=== PATIENT | male | born 1990 | race Caucasian/White ===

== ENCOUNTER 2024-07-08 05:04 | Inpatient (IN) | payer BC ==
[~2024-07-08] VITALS: Ht 170.2 cm; Wt 81.6 kg
[2024-07-08] VITALS (7 sets, daily range): BP systolic 101–179; BP diastolic 56–100; PULSE 89–151; RESP 18–20; TEMP 98.3–99.3; O2SAT 100
--- NOTE | 2024-07-08 05:30 | NUR ---
patient ambulated to bed 9, father at bedside
[2024-07-08] MEDS: NACL 0.9% 1,000 ML IV ONE (05:40)
--- NOTE | 2024-07-08 05:40 | NUR ---
MEDICATED ASPER ERMDS ORDER, TOLERATED WELL
[2024-07-08 05:44] LABS: BASOPHILS % (AUTO) 0.6 % (0.0-2.0); EOSINOPHILS # (AUTO) 0.1 K/uL (0-0.4); EOSINOPHILS % (AUTO) 1.7 % (0.0-4.0); HEMATOCRIT 30.3 % (36-52); HEMOGLOBIN 10.1 g/dL (12.0-18.0); LYMPHOCYTES # (AUTO) 1.3 K/uL (2.0-11.5); LYMPHOCYTES % (AUTO) 17.5 % (20.5-51.1); MEAN CORPUSCULAR HEMOGLOBIN 30 pg (27-31); MEAN CORPUSCULAR HGB CONC 34 g/dL (33-37); MEAN CORPUSCULAR VOLUME 88.4 fL (80-94); MONOCYTES # (AUTO) 0.9 K/uL (0.8-1.0); MONOCYTES % (AUTO) 11.9 % (1.7-9.3); NEUTROPHILS # (AUTO) 4.9 K/uL (1.8-7.7); NEUTROPHILS % (AUTO) 68.3 % (42.2-75.2); PLATELET COUNT (AUTO) 79 K/uL (140-450); RED BLOOD CELL COUNT(AUTO) 3.42 MIL/uL (4.20-6.10); RED CELL DISTRIBUTION WIDTH 19.8 % (11.6-13.7); WHITE BLOOD COUNT (AUTO) 7.2 K/uL (4.8-10.8)
[2024-07-08] MEDS: PANTOPRAZOLE 40 MG INJ VIAL IVP ONE (05:44)
[2024-07-08] MEDS: ONDANSETRON 4 MG/2 ML VIAL IVP ONE (05:45)
[2024-07-08 05:57] LABS: INR 1.52 (0.8-1.2); PROTHROMBIN TIME 15.5 secs (10.8-13.4)
[2024-07-08] MEDS: OCTREOTIDE ACETATE 1000 MCG/5 ML VIAL ONE (06:08)
[2024-07-08] MEDS: OCTREOTIDE ACETATE 100 MCG/ML VIAL IV ONE (06:23)
--- NOTE | 2024-07-08 06:50 | NUR ---
NO VOMITING OF BLOOD NOTED
[2024-07-08] MEDS ORDERED: cefTRIAXone 1,000 MG VIAL ONE (06:51)
[2024-07-08 06:53] LABS: ALBUMIN 3.4 g/dL (3.4-5.0); BILIRUBIN,DIRECT 2.6 mg/dL (0.0-0.3); TOTAL BILIRUBIN 5.5 mg/dL (0.0-1.0); TOTAL PROTEIN, SERUM 7.7 g/dL (6.4-8.2)
[2024-07-08 07:04] LABS: LACTIC ACID 2.9 mmol/L (0.4-2.0)
[2024-07-08 07:40] LABS: ANION GAP 17.8 (8-16); CALCIUM 8.7 mg/dL (8.5-10.1); CARBON DIOXIDE 21.7 mmol/L (21-32); POTASSIUM 3.5 mmol/L (3.5-5.1)
[2024-07-08 07:41] LABS: CREATININE 0.8 mg/dL (0.6-1.3)
[2024-07-08] MEDS: OCTREOTIDE ACETATE 1.25 MG in NACL 0.9% 250 ML IV SCH (07:43)
--- NOTE | 2024-07-08 07:45 | NUR ---
AT BEDSIDE WITH NIGHT RN, OCTECIDE HUNG PER ORDER. PT WITH 1 EPISODE HEMOPTYSIS.
--- NOTE | 2024-07-08 07:45 | NUR ---
REPORT GIVEN TO GARCIA LÓPEZ
--- NOTE | 2024-07-08 08:05 | NUR ---
FAMILY MEMBER AT BEDSIDE, PT RESTING WITH EYES CLOSED, NO FURTHER EPISODE OF HEMOPTYSIS
--- NOTE | 2024-07-08 08:25 | NUR ---
MEDICATED FOR TEMP 100.0
[2024-07-08] MEDS ORDERED: ALBUTEROL 0.083% 2.5 MG/3 ML NEBU INH PRN (08:50)
[2024-07-08] MEDS ORDERED: ONDANSETRON 4 MG/2 ML VIAL IVP PRN (08:50)
[2024-07-08] MEDS ORDERED: LORazepam 2 MG/ML VIAL IVP PRN (08:50)
[2024-07-08] MEDS ORDERED: ACETAMINOPHEN 325 MG TAB ONE (09:25)
[2024-07-08] MEDS ORDERED: ACETAMINOPHEN EXTRA STRENGTH 500 MG TAB PO ONE (09:40)
[2024-07-08] MEDS: ACETAMINOPHEN 325 MG TAB PO ONE (09:51)
--- NOTE | 2024-07-08 09:55 | NUR ---
Patient will be admitted to care of DR ADAME. Admited to TELE. Will go to room 104B. Belongings list completed. Report to SRINATH LÓPEZ.
--- NOTE | 2024-07-08 10:00 | NUR ---
ADMITTED WITH CHIEF COMPLAIN OF VOMITING. 34Y/O, MALE.ORIENTED TO CALL LIGHT, BED PHONE, TELEVISION, BATHROOM, SMOKING POLICY,VISITING HOURS, PROCEDURES, ID BRACELETS ON , BELONGINGS LIST CHECKED. PATIENT RECEIVED FROM ER VIA RSAN FRANCISCO. A/0X4, HEART MONITOR APPLIED, SKIN INTACT, AMBULATORY, CONTINENT. SAFETY PRECAUTION APPLIED. CALL LIGHT WITHIN REACH. PT NPO. PT STILL UNDER OBSERVE.
[2024-07-08] MEDS: PANTOPRAZOLE 40 MG INJ VIAL IVP SCH (10:20)
[2024-07-08] MEDS: DEXT 5% /NACL 0.9% 1,000 ML IV SCH (10:21)
--- NOTE | 2024-07-08 10:51 | NUR ---
Admitted from , with chief complaint of VOMITING , 34 y/o ,Male, Appropriate, oriented to call light, bed, phone,television, bathroom, smoking policy, visiting hours, procedures, ID bracelet on. Belongings list checked. PATIENT RECEIVED FROM ER VIA GURNEY BY ONE OF RAS GARCIA , SKIN INTACT , MONITOR APPLIED HAS VOMITING , CONTINENT X2 , ON IV FLUID 100ML/H , AMBULATORY , ON ROOM AIR , NPO SAFETY PRECAUTION ON PLACE , SIDE RAILS UP X2 , BED IN LOWER POSITION , CALL LIGHT WITHIN REACH PATIENT FOE GI CONSULT , PT STILL UNDER OBSERVE ,
--- NOTE | 2024-07-08 12:34 | NUR ---
PATIENT ON BED REST , VSS , SINUS TACHYCARDIA ON MONITOR PATIENT HAS VOMITING , SAFETY ON PLACE , PT STILL UNDER OBSERVE .
--- NOTE | 2024-07-08 15:28 | NUR ---
PT WENT TO THE OR FOR EGD PROCEDURE VIA 2 [employer]PL[employer] . NO SIGN OF DISTRESS.
[2024-07-08] MEDS: MIDAZOLAM 2 MG/2 ML VIAL IVP ONE (15:32)
[2024-07-08] MEDS: fentaNYL citrate 0.05 MG/ML VIAL IVP ONE (15:33)
[2024-07-08] MEDS: fentaNYL citrate 0.05 MG/ML VIAL ONE ×2 (15:33→15:34)
[2024-07-08] MEDS: diphenhydrAMINE 50 MG/ML VIAL ONE (15:33)
[2024-07-08] MEDS: MIDAZOLAM 5 MG/5 ML VIAL ONE (15:34)
[2024-07-08] MEDS: diphenhydrAMINE 50 MG/ML VIAL IVP ONE (15:35)
--- NOTE | 2024-07-08 16:05 | NUR ---
patient come back to the floor after EGD done , vss , no complain , still on ivf fluid started on full liquid diet , pt awake , conscious , safety o n place , pt still under observe
--- NOTE | 2024-07-08 16:15 | NUR ---
PT RETURNED TO [facility] FROM OR. ESOPHAGEAL VARICOS PORTAL GASTROPATHY WSW DISCOVERED DURING EGD. VSS AND ON BED REST. KEEP MONITORING.
--- NOTE | 2024-07-08 16:16 | NUR ---
PATIENT HAS BEEN SCREENED AND CATEGORIZED LOW NUTRITION RISK. PATIENT WILL BE SEEN WITHIN 7 DAYS OF ADMISSION. 07/15/[address]
[2024-07-08] MEDS: PROPRANOLOL 20 MG TAB PO SCH (16:18)
--- NOTE | 2024-07-08 19:05 | NUR ---
SHIFT REPORT GIVEN TO NIGHT NURSE CHENTE LÓPEZ ALL HER QUESTION ANSWERED
--- NOTE | 2024-07-08 19:15 | NUR ---
RECEIVED REPORT. PATIENT IS AWAKE ALERT VERBALLY RESPONSIVE. NO SOB NOTED. NO COMPLAINTS OF PAIN AT THIS TIME. IVF D5 NS INFUSING AT 100 ML/HR TO RIGHT ANTECUBITAL. SANDOSTATIN 1.25 MG IN 250 ML RUNNING 10 ML/HR. SAFETY MEASURES IN PLACE. CALL LIGHT WITHIN REACH. WILL CONTINUE TO MONITOR.
--- NOTE | 2024-07-08 20:56 | NUR ---
SCHEDULED MEDICATION DUE GIVEN.
[2024-07-08] MEDS: MORPHINE SULFATE 2 MG/ML SYR IVP PRN (23:22)
[2024-07-09] VITALS: BP 110/63; PULSE 87; PULSE 94; RESP 19; TEMP 98.6; O2SAT 97
[2024-07-09 04:00] VITALS: BP 120/72; PULSE 83; RESP 19; TEMP 98.1; O2SAT 99
--- NOTE | 2024-07-09 05:57 | NUR ---
ALL NEEDS MET THROUGHOUT THE SHIFT.
[2024-07-09 06:44] LABS: BASOPHILS % (AUTO) 1.2 % (0.0-2.0); EOSINOPHILS # (AUTO) 0.2 K/uL (0-0.4); EOSINOPHILS % (AUTO) 5.3 % (0.0-4.0); HEMATOCRIT 24.1 % (36-52); HEMOGLOBIN 7.8 g/dL (12.0-18.0); LYMPHOCYTES # (AUTO) 1.2 K/uL (2.0-11.5); LYMPHOCYTES % (AUTO) 30.5 % (20.5-51.1); MEAN CORPUSCULAR HEMOGLOBIN 29 pg (27-31); MEAN CORPUSCULAR HGB CONC 33 g/dL (33-37); MEAN CORPUSCULAR VOLUME 90.3 fL (80-94); MONOCYTES # (AUTO) 0.4 K/uL (0.8-1.0); MONOCYTES % (AUTO) 11.3 % (1.7-9.3); NEUTROPHILS % (AUTO) 51.7 % (42.2-75.2); PLATELET COUNT (AUTO) 58 K/uL (140-450); RED BLOOD CELL COUNT(AUTO) 2.66 MIL/uL (4.20-6.10); WHITE BLOOD COUNT (AUTO) 3.8 K/uL (4.8-10.8)
[2024-07-09 07:02] LABS: ANION GAP 13.4 (8-16); CALCIUM 7.8 mg/dL (8.5-10.1); CARBON DIOXIDE 23.6 mmol/L (21-32); CREATININE 0.8 mg/dL (0.6-1.3)
--- NOTE | 2024-07-09 07:15 | NUR ---
GAVE REPORT TO DAY SHIFT NURSE FOR CONTINUITY OF CARE. NO DISTRESS UPON ENDORSEMENT.
--- NOTE | 2024-07-09 07:15 | NUR ---
RECEIVED REPORT FROM ENTERTAINMENT DIRECTOR NURSE. PATIENT RESTING, A/O X4. NO SOB. RESPIRATION EVEN AND UNLABORED. PLAN OF CARE ONGOING. [id number]
[2024-07-09 08:00] VITALS: BP 121/67; PULSE 86; RESP 19; TEMP 98.6; O2SAT 98
--- NOTE | 2024-07-09 10:00 | NUR ---
PATIENT RESTING IN BED, VSS, RESPIRATION EVEN AND UNLABORED. NO SOB. NO PAIN OR DISTRESS NOTED. GAVE MEDS ORDERED; TOLERATED WELL. NO FURTHER CONCERNS OF PRESENT. POC ONGOING, NO FURTHER CONCERNS OF PRESENT. [id number]
--- NOTE | 2024-07-09 10:12 | NUR ---
Per AM rounds, H&H stable, GI to clear, for possible DC today No new orders for CM at this time
[2024-07-09 12:00] VITALS: BP 116/62; PULSE 75; PULSE 77; RESP 18; TEMP 98.9; O2SAT 100
--- NOTE | 2024-07-09 13:00 | NUR ---
PATIENT RESTING IN BED WITH CALM AND RELAXED EXPRESSION, RESPIRATION EVEN AND UNLABORED. VSS. NO SOB. NO PAIN OR DISTRESS NNOTED. GI DOCTOR VISIT AND CHANGED DIET TO SOFT DIET. POC ON GOING. NO FURTHER CONCERNS OF PRESENT. [id number]
--- NOTE | 2024-07-09 15:23 | NUR ---
PATIENT RESTING IN BED, VISIBLE CHEST RISE AND FALL. NO SOB. NO PAIN OR DISTRESS NOTED. ATE 100% OF LUNCH; TOLERATED WELL. ALL ORDERED MEDS ALL NEEDS ATTENDED TO BY STAFF DURING THIS TIME. POC ONGOING. NO FURTHER CONCERNS OF PRESENT. [id number]
[2024-07-09 16:00] VITALS: BP 106/64; PULSE 78; RESP 18; TEMP 98.4; O2SAT 99
[2024-07-09] MEDS: LANSOPRAZOLE 30 MG CAPDR PO SCH (16:53)
--- NOTE | 2024-07-09 17:49 | NUR ---
PATIENT RESTING IN BED WITH CALM AND RELAXED EXPRESSION. VSS. NO SOB. NO PAIN OR DISTRESS NOTED. RESPIRATION EVEN AND UNLABORED. ASSISTED WITH ALL ADLS, KEPT WARM, DRY AND COMFORTABLE. POC ONGOING, NO FURTHER CONCERNS OF PRESENT. [id number]
--- NOTE | 2024-07-09 18:41 | NUR ---
PATIENT RESTING IN BED VSS. NO SOB. RESPIRATION EVEN AND UNLABORED. NO PAIN OR DISTRESS NOTED. ATE 70% OF DINNER; TOLERATED WELL. ALL MEDICATION GIVEN ORDERED; TOLERATED WELL WITH NO ADVERSE SIDE EFFECTS. PLAN OF CARE ONGOING. NO FURTHER CONCERNS OF PRESENT. [id number]
--- NOTE | 2024-07-09 19:20 | NUR ---
GAVE REPORT TO RECORD CHANGER TESTER NURSE. VSS. SO SOB. NO PAIN OR DISCOMFORT. BED IN LOW POSITION. CALL LIGHT WITHIN NORMAL REACH. [id number]
--- NOTE | 2024-07-09 19:54 | NUR ---
PATIENT IN BED WELL RESTED. NO ACUTE DISTRESS NOTED ON ROOM AIR. DENIES PAIN AT THIS TIME. CALL LIGHT ON EASY REACH. BED WHEELS LOCKED IN LOW POSITION SIDE RAILS UP FOR SAFETY.
[2024-07-09 20:00] VITALS: BP 102/58; PULSE 79; PULSE 90; RESP 18; TEMP 98.9; O2SAT 100
[2024-07-10] VITALS: BP 117/73; PULSE 77; PULSE 79; RESP 18; TEMP 97.9; O2SAT 100
--- NOTE | 2024-07-10 01:06 | NUR ---
MADE ROUNDS, PATIENT UST CAME FROM THE TOILET, NO SOB NOTED. AMBULATORY.
[2024-07-10 04:00] VITALS: BP 112/63; PULSE 63; PULSE 73; RESP 18; TEMP 98.5; O2SAT 100
[2024-07-10 06:55] LABS: BASOPHILS % (AUTO) 1.2 % (0.0-2.0); EOSINOPHILS # (AUTO) 0.2 K/uL (0-0.4); EOSINOPHILS % (AUTO) 5.1 % (0.0-4.0); HEMATOCRIT 23.7 % (36-52); HEMOGLOBIN 7.8 g/dL (12.0-18.0); LYMPHOCYTES % (AUTO) 30.7 % (20.5-51.1); MEAN CORPUSCULAR HEMOGLOBIN 30 pg (27-31); MEAN CORPUSCULAR HGB CONC 33 g/dL (33-37); MONOCYTES # (AUTO) 0.5 K/uL (0.8-1.0); MONOCYTES % (AUTO) 14.5 % (1.7-9.3); NEUTROPHILS # (AUTO) 1.5 K/uL (1.8-7.7); NEUTROPHILS % (AUTO) 48.5 % (42.2-75.2); PLATELET COUNT (AUTO) 61 K/uL (140-450); RED BLOOD CELL COUNT(AUTO) 2.61 MIL/uL (4.20-6.10); RED CELL DISTRIBUTION WIDTH 19.3 % (11.6-13.7); WHITE BLOOD COUNT (AUTO) 3.2 K/uL (4.8-10.8)
--- NOTE | 2024-07-10 07:17 | NUR ---
RECEIVED BEDSIDE REPORT FROM TECHNOLOGY AUDITOR NURSE CHENTE RN, PT RESTING, NO DISTRESS NOTED, AWAKE ALERT ABLE TO COMMUNICATE. IV TO RIGHT AC 18G PATENT INTACT, INFUSING D5NS @100ML/HR, INFUSING WELL. PT ON ROOM AIR, NO SOB NOTED. NO C/O PAIN AT THIS MOMENT, INITIAL ASSESSMENT DONE, ALL SAFETY PRECAUTION IN PLACE. Addendum: 07/10/24 at 0804 by CONSTANCE HUGGINS RN CALL LIGHT WITHIN REACH.
--- NOTE | 2024-07-10 07:17 | NUR ---
GAVE BEDSIDE REPORT TO CONSTANCE LÓPEZ FOR CONTINUITY OF CARE. PATIENT STABLE.
[2024-07-10 07:35] LABS: ANION GAP 13.4 (8-16); CALCIUM 8.2 mg/dL (8.5-10.1); CARBON DIOXIDE 22.1 mmol/L (21-32); CREATININE 0.7 mg/dL (0.6-1.3); POTASSIUM 3.5 mmol/L (3.5-5.1)
--- NOTE | 2024-07-10 07:46 | NUR ---
DUE MEDICATIONS ADMINISTERED, PT TOLERATED WELL, CALL LIGHT WITHIN REACH.
[2024-07-10 08:00] VITALS: BP 114/64; PULSE 77; PULSE 78; PULSE 94; RESP 18; TEMP 97.8; O2SAT 100
--- NOTE | 2024-07-10 08:56 | NUR ---
DUE MEDICATIONS ADMINISTERED, PT TOLERATED WELL, CALL LIGHT WITHIN REACH.
[2024-07-10] MEDS ORDERED: PANT40EC PO (10:46)
[2024-07-10] MEDS ORDERED: PROP20TA29 PO (11:07)
--- NOTE | 2024-07-10 11:30 | NUR ---
DISCHARGE INSTRUCTION GIVE, PT STATED UNDERSTANDING, ALL PRESCRIPTION CONFIRMED WITH PT. IV TAKEN OUT, CANNULA INTACT. PT STATED BEING PICKED UP BY FAMILY WILL LET NURSE KNOW WHEN. WRISTBANDS TAKEN OFF.
--- NOTE | 2024-07-10 11:45 | NUR ---
PT LEFT UNIT IN STABLE CONDITION, WALKED PT TO LOBBY, PICKED UP BY FAMILY.
== END 2024-07-10 11:30 | disposition home or self-care (01) | DRG 432 ==
LOC: MED 05:04 → MTU 09:17
PROVIDERS: ADMIT Student in an Organized Health Care Education/Training Program; ATTEND Student in an Organized Health Care Education/Training Program
PROC: 06L38CZ Occlusion of Esophageal Vein with Extraluminal Device, Via Natural or Artificial Opening Endoscopic (ICD-10-PCS; principal; 2024-07-08 14:10)
DX: K70.30 Alcoholic cirrhosis of liver without ascites (principal); I85.11 Secondary esophageal varices with bleeding; F10.10 Alcohol abuse, uncomplicated; Y90.9 Presence of alcohol in blood, level not specified; K31.89 Other diseases of stomach and duodenum; D64.9 Anemia, unspecified
CPT/HCPCS: 36415; 71045; 80048; 80076; 83605; 83690; 85025; 85610; 86886; 86900; 86901; 87040; 87081; 93005; 96361; 96365; 96375; 99291; J0696; J1200; J2250; J2270; J2354; J2405; J2470; J3010; J7030; Q0092